=== PATIENT | female | born 1990 | race Caucasian/White ===

== ENCOUNTER 2017-09-19 23:15 | Emergency (ER) | payer MEDICAID ==
[~2017-09-19] VITALS: Ht 154.9 cm; Wt 49.9 kg
[2017-09-20 01:12] VITALS: BP 122/64
== END 2017-09-20 01:12 | disposition home or self-care (01) ==
LOC: ED 23:15
DX: J02.9 Acute pharyngitis, unspecified (principal)
CPT/HCPCS: J0561; J1100

== ENCOUNTER 2019-09-24 23:22 | Emergency (ER) | payer MEDICAID ==
[~2019-09-24] VITALS: Ht 157.5 cm; Wt 51.7 kg
[2019-09-24 23:29] VITALS: BP 125/82; Ht 157.5 cm; Wt 51.7 kg
== END 2019-09-25 02:31 | disposition home or self-care (01) ==
LOC: ED 23:22
DX: S05.11XA Contusion of eyeball and orbital tissues, right eye, initial encounter (principal); X58.XXXA Exposure to other specified factors, initial encounter; Y93.89 Activity, other specified; Y92.89 Other specified places as the place of occurrence of the external cause; Y99.8 Other external cause status